=== PATIENT | male | born 1995 | race Caucasian/White ===

== ENCOUNTER 2016-09-15 09:06 | Emergency (ER) | payer MEDICAID, OTHER ==
[~2016-09-15] VITALS: Wt 90.6 kg
[2016-09-15] MEDS ORDERED: DIPHENHYDRAMINE 50 MG INJ IV STA (09:24)
[2016-09-15] MEDS ORDERED: METOCLOPRAMIDE 10 MG INJ IV STA (09:24)
[2016-09-15] MEDS ORDERED: KETOROLAC 30 MG INJ IV STA (09:24)
[2016-09-15] MEDS ORDERED: SOD CHLORIDE 0.9% 1,000 ML IV STA (09:24)
--- NOTE | 2016-09-15 10:08 | RADRPT ---
PROCEDURE: CT head without Contrast CLINICAL INDICATION: Headache TECHNIQUE: Transaxial images were made through the head on a single slice scanner without intraven ous contrast. Coronal and sagittal images were subsequently reformatted. One or more of the following dose reduction techniques were used: - Automated exposure control. - Adjustment of the mA and/or kV according to patient size. - Use of iterative reconstruction technique. Radiation dose: Not available COMPARISON: None FINDINGS: The calvarium appears intact. The mastoid air cells and paranasal sinuses are well-aerated.. The ventricles are normal in size and there is no midline shift. No intracranial bleed, mass, or extra-axial fluid collection is identified. There is good hernandez-white matter differentiation. IMPRESSION: Unremarkable noncontrast enhanced CT scan of the head. Physician Ephraim Date Time Electronically viewed and signed by Physician Ephraim on 09/15/2016 10:08 /
[2016-09-15] MEDS ORDERED: FIORICET PO (10:41)
--- NOTE | 2016-09-15 12:16 | ERD ---
DATE OF SERVICE: 09/15/2016 HISTORY OF PRESENT ILLNESS: The patient is a 20-year-old male complaining of headache for the last month. He denies any trauma. He states that over the last week, he feels like it is worsening. He feels confused and dizzy. He took ibuprofen and Tylenol with no alleviation of symptoms. He felt slightly faint yesterday, but no fevers, no vomiting, no visual deficits, no chest pain, no shortnes s of breath, no abdominal pain. PAST MEDICAL HISTORY: Hypertension. ALLERGIES TO MEDICATIONS: Denies. PAST SURGICAL HISTORY: Denies. SOCIAL HISTORY: Denies. REVIEW OF SYSTEMS: A 12-point review of systems was done. Refer to HPI for positives, all other sy stems negative. PHYSICAL EXAMINATION: VITAL SIGNS: Temperature is 98.8, pulse 87, blood pressure is 140/88, respiratory rate 21, O2 satur ation 99% on room air. Pain intensity 8/10. GENERAL: The patient is well-appearing, well-nourished, no acute distress. HEENT: Atraumatic. Conjunctivae are pink. Pupils equal, round, and reactive to light. There is no s cleral icterus. Tympanic membranes clear bilaterally. Oropharynx clear. No nystagmus or photophobia . NECK: C-spine is soft and supple. There is no meningismus. There is no cervical lymphadenopathy. No JVD. No bruits. No goiter. CHEST: Clear to auscultation bilaterally. There are no rales, wheezes or rhonchi. HEART: Regular rate and rhythm. No murmurs, clicks, rubs or gallops. No S3 or S4. ABDOMEN: Soft, nontender and nondistended. Good bowel sounds. No rebound or guarding. No gross ani tonitis. No gross organomegaly or masses. No Patrick sign or McBurney point tenderness. NEURO: Alert and oriented. Cranial nerves 2-12 intact. Motor strength in all 4 extremities with 5/5 strength. Sensation grossly intact. Normal speech and gait. Babinski negative. DTR 2+ throughout. SKIN: There is no apparent rash or petechia. The skin is warm and dry. EMERGENCY ROOM COURSE: The patient had a brain CT done in the ER. Brain CT showed unremarkable non contrast contrast-enhanced CT scan of the brain. Patient was also given a liter of normal saline, T oradol, Benadryl and Reglan. Upon reevaluation, the patient was reevaluated and he states his sympt oms had dramatically improved and he no longer had a headache. DIAGNOSIS: Headache, resolved. MEDICAL DECISION MAKING: I have low suspicion for intracranial hemorrhage or mass effect. Low susp icion for neuro deficit, low suspicion for meningitis or sepsis. Patient's headache may be associat ed with dehydration or stress. Patient's headache was resolved in the ER. DISCHARGE: The patient is discharged stable. Patient was given a prescription for Fioricet and to follow up with primary care within 1 to 2 days for reevaluation. Patient was told if symptoms progr ess or worsen to return to the ER. All other questions answered at time of discharge. Discharge nolasco mmary given at the time of departure. Patient understood and complied with plan. Dictated By: ALETA ALMODOVAR for J LUIS LIVE/LUPE Conf#: [id number] DID#: [id number]
== END 2016-09-15 10:51 | disposition home or self-care (01) ==
LOC: FTE 09:06
DX: R51 Headache (principal); I10 Essential (primary) hypertension
CPT/HCPCS: 70450; 96361; 96374; 96375; J1200; J1885; J2765; J7030; Z7502

== ENCOUNTER 2016-10-31 10:57 | Emergency (ER) | payer OTHER ==
[~2016-10-31] VITALS: Wt 92.5 kg
[~2016-10-31 10:57] MED LIST: FIORICET PO
[2016-10-31] MEDS ORDERED: IBUPROFEN 600 MG TAB PO ONE (11:30)
[2016-10-31] MEDS ORDERED: LIDOCAINE 1% (MDV) 20 ML INJ SC ONE (11:30)
[2016-10-31] MEDS ORDERED: IBUP-1542 PO (11:48)
--- NOTE | 2016-10-31 11:51 | ERD ---
ER Documentation Chief Complaint Date/Time DATE: 10/31/16 TIME: 11:49 Chief Complaint BILAT 1ST TOE PAIN X2 WEEKS HPI 21-year-old male complains of pain in his bilateral toes for last 2 weeks. He thinks it is toenails might be ingrown. Denies history of trauma, fevers, additional complaints. He has not had these treated before. ROS All systems reviewed and are negative except as per history of present illness. Medications Home Meds Active Scripts Ibuprofen* (Motrin*) 600 Mg Tab, 600 MG PO Q6, #15 TAB Prov:BLAIR CHAIREZ MD 10/31/16 Acetamin/Butalbital/Caffeine* (Fioricet*) [id number] Tab, 1 TAB PO Q6H Y for PAIN, #30 TAB Prov:CHIKI CHAVARRIA PA-C 09/15/16 Allergies Allergies: Coded Allergies: No Known Allergy (Unverified , 10/31/16) PMhx/Soc Medical and Surgical Hx: pt denies Medical Hx, pt denies Surgical Hx History of Surgery: No Anesthesia Reaction: No Hx Neurological Disorder: No Hx Respiratory Disorders: No Hx Cardiac Disorders: No Hx Psychiatric Problems: No Hx Miscellaneous Medical Probl: No Hx Alcohol Use: No Hx Substance Use: Yes (crystal meth) Hx Tobacco Use: No Smoking Status: Never smoker Physical Exam Vitals Vital Signs Date Time Temp Pulse Resp B/P Pulse Ox O2 Delivery O2 Flow Rate FiO2 10/31/16 11:02 98.6 94 18 151/101 97 Physical Exam Const: [] Alert, iid-yct-eerohruou per Head: Atraumatic Eyes: Normal Conjunctiva ENT: Normal External Ears, Nose and Mouth. Neck: Full range of motion..~ No meningismus. Resp: Clear to auscultation bilaterally Cardio: Regular rate and rhythm, no murmurs Abd: Soft, non tender, non distended. Normal bowel sounds Skin: No petechiae or rashes Back: No midline or flank tenderness Ext: No cyanosis, or edema. Patient has bilateral big toe ingrown toenails on the medial and lateral aspects bilaterally. There is a slight amount of dried blood and redness without warmth, induration, bony tenderness or deformities. Neur: Awake and alert Psych: Normal Mood and Affect Results 24 hrs Current Medications Medications (Trade) Dose Ordered Sig/Petr Route PRN Reason Start Time Stop Time Status Last Admin Dose Admin Ibuprofen (Motrin) 600 mg ONCE ONCE PO 10/31/16 11:30 10/31/16 11:31 DC 10/31/16 11:23 Lidocaine (Xylocaine 1% (Mdv) 20 ml) 20 ml ONCE ONCE SC 10/31/16 11:30 10/31/16 11:31 DC Procedures/MDM Patient has signs and symptoms of bilateral ingrown toenails medial and laterally. Patient wishes to have all 4 areas debrided or the ingrown nail is avulsed. There is no signs to suggest ostEOmyelitis, foreign body, fracture, dislocation, significant cellulitis per Procedure note-bilateral big toes were prepped with Betadine. 3 cc of lidocaine were used in the bilateral toes to perform bilateral digital blocks. Anesthesia was obtained. Clamped scissors were used to remove the ingrown portions of the nails bilaterally. Patient tolerated procedure well and the wounds were dressed. Patient will be discharged home instructions for wound care instructions to return for fevers, redness, new worsening symptoms. Departure Diagnosis: Primary Impression: Ingrown toenail Condition: Stable Patient Instructions: Ingrown Toenail, Excised Additional Instructions: Recheck for increasing redness, swelling, fevers, new worsening symptoms. BLAIR CHAIREZ MD Oct 31, 2016 11:51
[2016-10-31] MEDS ORDERED: ACETAMINOPHEN/CODEINE #3 TAB PO ONE (13:00)
== END 2016-10-31 12:43 | disposition home or self-care (01) ==
LOC: FTE 10:57
DX: L60.0 Ingrowing nail (principal)
CPT/HCPCS: 11765; Z7610

== ENCOUNTER 2017-01-15 20:09 | Emergency (ER) | payer OTHER ==
[~2017-01-15] VITALS: Ht 172.7 cm; Wt 95.0 kg
[~2017-01-15 20:09] MED LIST changes: +IBUP-1542 PO
[2017-01-15 20:12] VITALS: Ht 172.7 cm; Wt 95.0 kg
[2017-01-15] MEDS ORDERED: HYDR-902 PO (21:18)
[2017-01-15] MEDS ORDERED: SLSL1C50 TOP (21:18)
--- NOTE | 2017-01-15 21:21 | ERD ---
ER Documentation Chief Complaint Date/Time DATE: 01/15/17 TIME: 21:19 Chief Complaint bilateral foot pain with old wound on both plantar area HPI Patient is a 21-year-old male who states that one week ago he was walking barefoot on the hot pavement and he burned the soles of his both feet. He then developed blisters on the feet and his friend used a knife to cut the blisters. He was seen at [facility] where he was given a prescription for Silvadene cream as well as [place] for pain control but he ran out of these medications and he continues to have severe pain and would like a refill of both the cream and the pain medication. Denies any fever. No bleeding or drainage. ROS All systems reviewed and are negative except as per history of present illness. Medications Home Meds Active Scripts Hydrocodone/Acetaminophen ([place] 10-325 Tablet) 1 Each Tablet, 1 EACH PO Q6, # 20 TAB Prov:GEENA MONTOYA PA-C 01/15/17 Silver Sulfadiazine* (Thermazene*) 1%-50 gm Cream..g., 1 APPLIC TOP BID, #1 JAR Prov:GEENA MONTOYA PA-C 01/15/17 Ibuprofen* (Motrin*) 600 Mg Tab, 600 MG PO Q6, #15 TAB Prov:BLAIR CHAIREZ MD 10/31/16 Acetamin/Butalbital/Caffeine* (Fioricet*) [id number] Tab, 1 TAB PO Q6H Y for PAIN, #30 TAB Prov:CHIKI CHAVARRIA PA-C 09/15/16 Allergies Allergies: Coded Allergies: No Known Allergy (Unverified , 10/31/16) PMhx/Soc History of Surgery: No Anesthesia Reaction: No Hx Neurological Disorder: No Hx Respiratory Disorders: No Hx Cardiac Disorders: No Hx Psychiatric Problems: No Hx Miscellaneous Medical Probl: No Hx Alcohol Use: No Hx Substance Use: Yes (crystal meth) Hx Tobacco Use: No FmHx Family History: No diabetes Physical Exam Vitals Vital Signs Date Time Temp Pulse Resp B/P Pulse Ox O2 Delivery O2 Flow Rate FiO2 01/15/17 20:12 99.8 109 20 133/80 99 Physical Exam Const: [] Head: Atraumatic Eyes: Normal Conjunctiva ENT: Normal External Ears, Nose and Mouth. Neck: Full range of motion..~ No meningismus. Resp: Clear to auscultation bilaterally Cardio: Regular rate and rhythm, no murmurs Skin: The soles of the bilateral feet are completely blistered and tender to palpation, there is no significant surrounding erythema, bleeding, or drainage, sensation to light touch is intact, pedal pulses 2+, capillary refill less than 2 seconds Procedures/MDM Patient presents with blisters on the bilateral feet that he has had for 1 week secondary to stepping on hot pavement. He is neurovascular intact his tetanus is up-to-date. I gave him a prescription for Silvadene cream as well as [place] for pain. I also gave him Keflex. Recommended this patient follow up with her primary care doctor within 48 hours or return to the emergency room for any worsening of symptoms. However this time I do believe there is suitable for outpatient management. I answered all their questions and they agreed with the plan and were discharged home. Departure Diagnosis: Primary Impression: Blisters of multiple sites Condition: Stable Patient Instructions: Blister Additional Instructions: Call your primary care doctor TOMORROW for an appointment during the next 1-2 days.See the doctor sooner or return here if your condition worsens before your appointment time. GEENA MONTOYA PA-C Jan 15, 2017 21:21
[2017-01-15] MEDS ORDERED: CEPH-443 PO (21:22)
== END 2017-01-15 21:47 | disposition home or self-care (01) ==
LOC: FTE 20:09
DX: T25.221A Burn of second degree of right foot, initial encounter (principal); T25.222A Burn of second degree of left foot, initial encounter; X19.XXXA Contact with other heat and hot substances, initial encounter; Y92.89 Other specified places as the place of occurrence of the external cause
CPT/HCPCS: 99283